=== PATIENT | female | born 1955 | race Hispanic/Latino ===

== ENCOUNTER → 2025-03-13 | Outpatient (CLI) | payer MEDICARE ==
--- NOTE | 2025-03-13 10:40 | EKG ---
[facility] Test Date: 2025-03-13 Test Time: 10:20:48 Pat Name: ALURA COBIAN Department: [facility] Room: Gender: F [employer] Worker: [id number] : 1955 Requested By: DONG WASHBURN Order Number: [id number] Reading MD: John Almaraz Measurements Intervals [place] Rate: 58 P: 32 WA: 157 QRS: 22 QRSD: 76 T: 0 QT: 411 QTc: 405 Interpretive Statements Sinus rhythm Low voltage, precordial leads Compared to ECG 08/07/2024 15:58:37 No significant changes Electronically Signed On 03-14-2025 15:43:59 CDT by John Almaraz Please click the below link to view image of tracing.
--- NOTE | 2025-03-14 05:23 | HMCIMG ---
EXAM: CR Chest, 1 views. CLINICAL HISTORY: Cough. COMPARISON: None provided. FINDINGS: The lungs show no infiltrate or other acute findings. No pleural effusion or pneumothorax. The cardiomediastinal silhouette is within normal limits. No acute osseous abnormality. IMPRESSION: 1. No acute cardiopulmonary pathology is evident. /[place]
== END | disposition home or self-care (01) ==
LOC: RAH 09:44
PROVIDERS: ATTEND Internal Medicine Nephrology
DX: R06.02 Shortness of breath (principal); I10 Essential (primary) hypertension
CPT/HCPCS: 71045; 93005